=== PATIENT | female | born 1980 | race African-American/Black ===

== ENCOUNTER 2017-07-02 11:51 | Emergency (ER) | payer MEDICAID ==
[~2017-07-02] VITALS: Ht 157.5 cm; Wt 53.1 kg
[2017-07-02 11:53] VITALS: BP 112/84
[2017-07-02] MEDS ORDERED: ACETAMINOPHEN ES 500 MG TABLET PO ONE (12:00)
[2017-07-02] MEDS ORDERED: ACETAMINOPHEN ES 500 MG TABLET ONE (12:04)
== END 2017-07-02 13:08 | disposition home or self-care (01) ==
LOC: ER 11:53
DX: R07.89 Other chest pain (principal); M54.6 Pain in thoracic spine; Z88.8 Allergy status to other drugs, medicaments and biological substances; V43.52XA Car driver injured in collision with other type car in traffic accident, initial encounter; Y93.89 Activity, other specified; Y92.410 Unspecified street and highway as the place of occurrence of the external cause; Y99.9 Unspecified external cause status
CPT/HCPCS: 71010-TC; A4606; Z7610